=== PATIENT | female | born 1960 | race Caucasian/White ===

== ENCOUNTER → 2019-01-15 | Outpatient (REF) | payer BC | LOC: M LAB LCGH 17:18 | PROVIDERS: ATTEND Nurse Practitioner Family | DX: R87.615 Unsatisfactory cytologic smear of cervix (principal) ==

== ENCOUNTER → 2019-02-01 | Outpatient (REF) | payer BC | LOC: M LAB LCGH 11:40 | PROVIDERS: ATTEND Nurse Practitioner Family | DX: Z12.4 Encounter for screening for malignant neoplasm of cervix (principal) ==

== ENCOUNTER → 2020-06-08 | Outpatient (CLI) | payer BC ==
[~2020-06-08] MED LIST: ALPR2TAB3 PO
== END ==
LOC: M LABSMTC 11:34
PROVIDERS: ATTEND Orthopaedic Surgery
DX: Z20.828 Contact with and (suspected) exposure to other viral communicable diseases (principal)
CPT/HCPCS: C9803; U0003

== ENCOUNTER 2020-06-13 09:54 | Day surgery (SDC) | payer BC ==
[~2020-06-13] VITALS: Ht 165.1 cm; Wt 69.4 kg
[~2020-06-13 09:54] MED LIST changes: -ALPR2TAB3 PO; +LIDOCAINE 2% 100MG/5ML SDV (FOR ANES.) As Ordered ONE; +ONDANSETRON 4MG/2ML VIAL As Ordered ONE; +ROCURONIUM BROMIDE 50 MG/5 ML VIAL As Ordered ONE; +SUGAMMADEX SODIUM 500 MG/5 ML VIAL (BRIDION) As Ordered ONE; +dexameTHASONE 4 MG/ML 1ML VIAL (J1100 PER 1MG) As Ordered ONE; +fentaNYL 250 MCG/5 ML INJECTION (J3010) As Ordered ONE; +propofoL 200 MG/20 ML VIAL As Ordered ONE
[2020-06-13] MEDS ORDERED: dexameTHASONE 10MG/1ML VIAL PRES.FREE (J1100 PER 1MG) ONE ×2 (09:55)
[2020-06-13] MEDS ORDERED: ROPIvacaine 0.5% 30ML INJECTION (J2795 PER 1MG) ONE ×2 (09:55)
[2020-06-13] MEDS ORDERED: LIDOCAINE 1% MDV 20ML VIAL ONE ×2 (09:55)
[2020-06-13] MEDS ORDERED: ceFAZolin 2 GM/D5W 50 ML IV BAG (J0690 PER 500MG) As Ordered ONE (10:10)
[2020-06-13] MEDS ORDERED: ALPR2TAB3 PO (10:21)
[2020-06-13] MEDS ORDERED: ceFAZolin SOD 2 GM in IV 1 EA IV ONE (10:30)
[2020-06-13] MEDS ORDERED: fentaNYL 100 MCG/2 ML INJECTION (J3010) As Ordered ONE (10:54)
[2020-06-13] MEDS ORDERED: MIDAZOLAM INJ 2MG/2ML VIAL (J2250 PER 1MG) As Ordered ONE (10:54)
[2020-06-13] MEDS: fentaNYL 100 MCG/2 ML INJECTION (J3010) IV PRN ×2 (11:09→12:06)
[2020-06-13] MEDS: MIDAZOLAM INJ 2MG/2ML VIAL (J2250 PER 1MG) IV PRN ×2 (11:09→11:10)
[2020-06-13] MEDS ORDERED: BUPIVACAINE HCL 0.5% 30 ML VIAL As Ordered ONE (11:49)
[2020-06-13] MEDS ORDERED: ePHEDrine SULFATE 25 MG/5 ML(5MG/ML) SYRINGE As Ordered ONE (12:30)
[2020-06-13] MEDS ORDERED: PHENYLephrine HCL 500 MCG/5 ML (100MCG/ML) SYRINGE (J2370) As Ordered ONE (12:30)
[2020-06-13] MEDS ORDERED: ACETAMINOPHEN 1000MG 100ML IV BTL (OFIRMEV) (J0131 PER 10MG) As Ordered ONE (12:33)
[2020-06-13] MEDS ORDERED: fentaNYL 100 MCG/2 ML INJECTION (J3010) IV PRN (15:45)
[2020-06-13] MEDS ORDERED: LR 1,000 ML IV SCH ×2 (15:45)
[2020-06-13] MEDS ORDERED: ONDANSETRON 4MG/2ML VIAL IV PRN (15:45)
[2020-06-13] MEDS ORDERED: oxyCODONE 5MG TAB PO PRN ×3 (15:45)
[2020-06-13 16:50] VITALS: BP 133/77
[2020-06-13] MEDS ORDERED: ACETAMINOPHEN 500 MG TAB PO SCH (22:00)
[2020-06-14] MEDS ORDERED: ASPIRIN 81 MG CHEW TABLET PO SCH (09:00)
--- NOTE | 2020-07-05 12:43 | ECGEPIP ---
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
--- NOTE | 2020-07-06 12:05 | RO ---
DATE OF OPERATION: 06/13/2020 PREOPERATIVE DIAGNOSIS: Adult-acquired flat foot deformity, right side. POSTOPERATIVE DIAGNOSIS: Adult-acquired flat foot deformity, right side. PROCEDURES: 1. Right medializing calcaneal osteotomy. 2. Right posterior tibial tendon excision and debridement. 3. Right flexor digitorum longus transferred to the navicular. 4. Right spring ligament repair. SURGEON: Pao Gomez M.D. CALL OR CONTACT CENTRE MANAGER: Cole Lassiter ESTIMATED BLOOD LOSS: 25 mL. COMPLICATIONS: None. IMPLANTS: Two 4.5 mm cannulated screws, partially threaded. CONDITION: Stable to recovery. INDICATIONS: Ximena Quiroga is a 59-year-old female who has had longstanding pain and deformity due to a right flat foot deformity. She has failed conservative measures. Risks and benefits of surgery were discussed with the patient in detail and include, but are not limited to, infection, damage to nerves and blood vessels, continued pain and stiffness, need for additional procedures. Informed consent was obtained in the office. DESCRIPTION OF PROCEDURE: Patient was met in the preoperative holding area, where her right lower extremity was marked at the correct operative site. She underwent a nerve block by the anesthesia team. She was taken to the operating room, where her right lower extremity was prepped and draped in the normal sterile fashion. Antibiotics were given within 60 minutes prior to incision. An official time-out was held, where the correct patient, operative site, and operative procedure were verified. The leg was exsanguinated and tourniquet inflated to 250 mm of mercury. An incision was made medially over the posterior tibial tendon. Crossing vessels were coagulated. The posterior tibial tendon sheath was opened, and there was significant tenosynovitis. The tendon also had a large partial tear and was quite enlarged and tendinotic. It was excised except for a small stump. Next, the flexor digitorum longus (FDL) tendon was found in the floor of the posterior tibial tendon sheath. It was tracked down to the rolando of Sanchez. Again care was taken to coagulate all crossing vessels. The tendon was cut and stitch with a #2 FiberWire was performed at the end. It measured 4.5 mm. A pin was then placed through the center of the navicular using the mini C-arm. I then used a reamer from the [employer] set to drill over the pin. At this point, attention was turned to the lateral heel. An incision was marked out over the lateral calcaneal tuberosity. Incision was made with a 15 blade. Careful dissection was performed to the level of the bone. Two small 0.062 K wires were placed to tariq my osteotomy. This was confirmed on lateral C-arm and found to be satisfactory. The osteotomy was made with a 40 saw. I then translated approximately 6 mm, and this was found to be satisfactory. It was held in place with a 0.062 K wire, and then two 4.5 mm cannulated partially threaded Synthes screws were placed to secure the osteotomy. The 0.062 K wire was removed. I confirmed location of my screws and good compression of my osteotomy site on lateral and axial heel views. At this point, attention was turned back to the FDL transfer. The FDL tendon was passed through the hole that I had previous reamed in the navicular. It was secured in place using a combo of two 0 FiberWire, and the ends of the #2 FiberWire were passed through the dorsal aspect of the bone. At this point, there was slight tightness with dorsiflexion, and so decision was made to do gastrocnemius recession. An incision was made over the medial aspect of the calf. Careful dissection was performed with care to coagulate crossing vessels. The fascia was incised. Unfortunately, there was extensive atrophy of the soleus muscle and there was not a good layer of fascia to cut anteriorly. I decided to abort on the gastrocnemius recession given her calf atrophy. I did not feel that she was tight enough to warrant an Achilles tendon lengthening, and at this point all incision were copiously irrigated. Soft tissues were closed with 3-0 Vicryl and skin was closed using 3-0 nylon. Sterile dressings were applied, and the patient was placed into a well-padded splint. She was extubated and transferred to the recovery room in stable condition. PLAN: The patient will be nonweightbearing on the right lower extremity for 6 weeks. I will see her in 2 weeks to be placed into a cast. She will be on aspirin for deep venous thrombosis (DVT) prophylaxis. STEVENSON
--- NOTE | 2020-07-11 13:48 | REP ---
C-ARM VIEWS OF THE RIGHT CALCANEUS: FINDINGS: Multiple C-arm views of the right calcaneus are performed. Surgical defect is seen, then is fixed by 2 metallic screws. The osseous structures are well aligned. Inferior calcaneal spurring is noted. 1 minute 46 seconds of fluoroscopy time is utilized for the procedure. STEVENSON
== END 2020-06-13 18:10 | disposition home or self-care (01) ==
LOC: M SDC 09:54
PROVIDERS: ATTEND Orthopaedic Surgery
DX: M21.41 Flat foot [pes planus] (acquired), right foot (principal); Z79.899 Other long term (current) drug therapy
CPT/HCPCS: 27691; 28200; 28300; 64445; 76000; 88304; 93005; C1713; J0131; J0690; J1100; J2250; J2370; J2405; J2795; J3010